=== PATIENT | male | born 1985 | race African-American/Black ===

== ENCOUNTER 2019-11-01 12:13 | Emergency (ER) | payer OTHER ==
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
== END 2019-11-01 14:10 | disposition home or self-care (01) ==
LOC: VM.ED 12:13
DX: M54.2 Cervicalgia (principal); M54.9 Dorsalgia, unspecified
CPT/HCPCS: 99283